=== PATIENT | female | born 1980 | race Caucasian/White ===

== ENCOUNTER 2019-05-28 13:14 | Emergency (ER) | payer SELFPAY ==
[~2019-05-28] VITALS: Ht 167.6 cm; Wt 75.0 kg
[2019-05-28] MEDS ORDERED: DiphenhydrAMINE HCL 50 MG/ML VIAL IVP ONE (14:30)
[2019-05-28] MEDS ORDERED: SODIUM CHLORIDE 0.9% 1,000 ML IV ONE (14:30)
[2019-05-28] MEDS ORDERED: METOCLOPRAMIDE HCL 5 MG/ML 2 ML VIAL IVP ONE (14:30)
[2019-05-28] MEDS ORDERED: KETOROLAC TROMETHAMINE 30 MG/ML VIAL IVP ONE (14:30)
[2019-05-28 14:54] VITALS: BP 100/58
== END 2019-05-28 16:09 | disposition home or self-care (01) ==
LOC: EMS 13:14
DX: G43.909 Migraine, unspecified, not intractable, without status migrainosus (principal)
CPT/HCPCS: 81025; 96361; 96374; 96375; 99283; J1200; J1885; J2765; J7030